=== PATIENT | male | born 1985 | race Caucasian/White ===

== ENCOUNTER 2017-04-23 01:54 | Emergency (ER) | payer SELFPAY ==
[~2017-04-23] VITALS: Ht 180.3 cm; Wt 68.0 kg
--- NOTE | 2017-04-23 02:05 | Emergency Room Report ---
History of Present Illness General Chief Complaint: Alcohol Intoxication Source: EMS Present Illness HPI This is a 32-year-old male brought in by EMS for alcohol intoxication. He was at a club and has been drinking. He was found asked out in the club. No trauma. People call 911. Unable to get much of a history from this patient. There was no evidence of any vomiting. Allergies: Coded Allergies: UNABLE TO ASSESS (Unverified , 04/23/17) Patient History Past Medical History: see triage record, old chart reviewed Past Surgical History: unable to obtain Pertinent Family History: unable to obtain Social History: Reports: alcohol use Immunizations: other Reviewed Nursing Documentation: PMH: Agreed, PSxH: Agreed Nursing Documentation-PMH Past Medical History Deferred: Pt Cognitively Impaired Past Medical History: Deferred Review of Systems Eye: Denies: eye pain, blurred vision ENT: Denies: ear pain, nose congestion, throat swelling Respiratory: Denies: cough, shortness of breath Cardiovascular: Denies: chest pain, palpitations Gastrointestinal: Denies: abdominal pain, diarrhea, nausea, vomiting Musculoskeletal: Denies: back pain, joint pain Skin: Denies: rash Neurological: Denies: headache, numbness Endocrine: Denies: increased thirst, increased urine Hematologic/Lymphatic: Denies: easy bruising All Other Systems: negative except mentioned in HPI Physical Exam Vital Signs Date Time Temp Pulse Resp B/P (MAP) Pulse Ox O2 Delivery O2 Flow Rate FiO2 04/23/17 01:51 98.1 86 16 121/78 96 Room Air vitals normal Sp02 EP Interpretation: reviewed, normal General Appearance: well appearing, no apparent distress, alert Head: normocephalic, atraumatic Eyes: bilateral eye PERRL, bilateral eye EOMI ENT: hearing grossly normal, normal pharynx Neck: full range of motion, supple, no meningismus Respiratory: chest non-tender, lungs clear, normal breath sounds Cardiovascular #1: regular rate, rhythm, no murmur Gastrointestinal: normal bowel sounds, non tender, no mass, no organomegaly, no bruit, non-distended Musculoskeletal: back normal, normal range of motion Neurologic: alert, oriented x3 Psychiatric: mood/affect normal Skin: warm/dry Medical Decision Making Diagnostic Impression: Primary Impression: Acute alcoholic intoxication Qualified Codes: F10.929 - Alcohol use, unspecified with intoxication, unspecified ER Course Patient since with alcohol intoxication. No trauma. I see no need for CT scan or x-rays. We'll watch for clinical sobriety. Will discharge him afterward Last Vital Signs Date Time Temp Pulse Resp B/P (MAP) Pulse Ox O2 Delivery O2 Flow Rate FiO2 04/23/17 01:51 98.1 86 16 121/78 96 Room Air Status: improved Disposition: HOME, SELF-CARE Condition: Stable Patient Instructions: Alcohol Intoxication, [id number] Additional Instructions: Abstain from drinking to excess. Followup with your doctor as needed in 7 days. Return if worse. JOHNY SHARMA M.D. Apr 23, 2017 02:05
[2017-04-23 02:12] VITALS: BP 121/78
== END 2017-04-23 02:12 | disposition home or self-care (01) ==
LOC: EDBD 01:54 → EMR 02:10
DX: F10.129 Alcohol abuse with intoxication, unspecified (principal)
CPT/HCPCS: 99282